=== PATIENT | female | born 1965 | race Caucasian/White ===

== ENCOUNTER → 2018-03-10 07:07 | Outpatient (CLI) | payer OTHER, SELFPAY ==
[2018-03-10 11:05] LABS: Vitamin D 25 Hydroxy (D3) 61.4 ng/mL (30.0-100.0)
[2018-03-10 11:12] LABS: TSH w/ Reflex to FT4 1.75 uIU/mL (0.47-4.68)
== END ==
PROVIDERS: PCP Specialist; Visit Provider Specialist
DX: E55.9 Vitamin D deficiency, unspecified (principal); E03.9 Hypothyroidism, unspecified
CPT/HCPCS: 82306; 84443

== ENCOUNTER 2018-03-21 07:53 | Emergency (ER) | payer OTHER, SELFPAY ==
--- NOTE | 2018-03-21 07:58 | DI.RAD.S_ITS ---
PROCEDURE: XR HAND RT MIN 3V INDICATIONS: hand injury TECHNIQUE: 3 views of the hand(s) acquired. COMPARISON: None. FINDINGS: Bones: No fractures or dislocations. Carpal bones are normally aligned. No suspicious bony lesions. Soft tissues: No suspicious soft tissue calcifications. IMPRESSION: Negative for fracture Dictated by: Abdon Ybarra M.D. on 03/21/2018 at 9:01 Approved by: Abdon Ybarra M.D. on 03/21/2018 at 9:02
[2018-03-21 08:18] VITALS: BP 111/68; PULSE 68; RESP 12; TEMP 36.6; O2SAT 97; BMI 25.3
--- NOTE | 2018-03-21 09:20 | ED_ITS ---
HPI - Extremity Injury (Upper) General Chief Complaint: Extremity Injury, Upper Stated Complaint: SMASHED RT HAND Time Seen by Provider: 03/21/18 07:57 Source: patient Mode of arrival: ambulatory Limitations: no limitations History of Present Illness HPI narrative: 52-year-old otherwise healthy female presents with right hand pain after a work related injury yesterday. 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 She now has pain and bruising on the dorsum of her hand, worse with range of motion and improves with rest. She denies other injury. She denies numbness, tingling or weakness. complaint: injury to: right Onset (ago): day(s) Other Extremity Injury: Right: hand Other injuries: none Handedness: right Place: work Severity: mild Relieving factors: rest Exacerbating factors: movement of extremity Context: direct blow Associated symptoms: denies other symptoms Related Data Allergies Allergy/AdvReac Type Severity Reaction Status Date / Time IBUPROFEN Allergy Mild SUSPECTED Uncoded 11/17/17 11:52 ALLERGY-ANAPHYLAXSIS Fluconazole Allergy Unknown Uncoded 11/17/17 11:52 Miconazole Allergy Unknown Uncoded 11/17/17 11:52 Review of Systems Review of Systems All systems reviewed & are unremarkable except as noted in HPI and below Constitutional Denies chills, Denies fever(s), Denies lethargy and Denies weakness Eyes Denies change in vision, Denies eye discharge, Denies irritation and Denies loss of vision ENT Ears, Nose, Mouth, and Throat: Denies change in voice, Denies neck pain and Denies sore throat Cardiovascular Denies chest pain, Denies irregular heart rhythm, Denies lightheadedness, Denies palpitations, Denies dyspnea, Denies dyspnea on exertion and Denies orthopnea Respiratory Denies cough, Denies dyspnea, Denies dyspnea on exertion and Denies wheezing Gastrointestinal Gastrointestinal: Denies abdominal pain, Denies change in bowel habits, Denies diarrhea, Denies nausea and Denies vomiting Genitourinary Denies hematuria, Denies flank pain, Denies urinary incontinence and Denies urinary urgency Musculoskeletal Reports joint swelling, Reports limited range of motion and Denies neck pain Integumentary/Breasts Denies pruritus, Denies erythema, Denies rash and Denies wounds Neurologic Denies confusion, Denies loss of vision and Denies weakness Psychiatric Denies anxiety, Denies confusion, Denies depression, Denies homicidal ideation and Denies suicidal ideation Endocrine Denies palpitations Hematologic/Lymphatic Denies easy bruising Allergic/Immunologic Denies wheezing [facility] Social History Smoking Status: Former smoker Exam Narrative Exam Narrative: GEN: AOx3 and in mild distress EYES: Pupils are equal, round, and reactive to light and accommodation. Extraoccular muscles are intact bilaterally. There is no subconjunctival hemorrhage or exudate. CHEST: Lungs are clear to auscultation bilaterally and free of wheezes, rales, or rhonchi. Heart rate is regular rhythm, there are no murmurs, clicks, rubs, or gallops. There is no chest wall tenderness. ABD: Abdomen is soft and nontender. There is no guarding or rebound. Bowel sounds are normal in all 4 quadrants. There is no mass or organomegaly. EXT: Full but painful range of motion of right hand. Patient able to make a fist. No obvious deformity. Minimal swelling. Cap refill and sensation intact. SKIN: Warm, pink, and dry. No erythema or rash Initial Vital Signs Initial Vital Signs: Vital Signs Temperature 97.9 F 03/21/18 08:18 Pulse Rate 68 03/21/18 08:18 Respiratory Rate 12 03/21/18 08:18 Blood Pressure 111/68 03/21/18 08:18 Pulse Oximetry 97 03/21/18 08:18 Course Orders Ordered: ED Orders 03/21/18 07:58 XR hand RT min 3V Stat Vital Signs - 8 hr 03/21/18 08:18 Temperature 97.9 F Pulse Rate 68 Respiratory Rate 12 Blood Pressure 111/68 Pulse Oximetry 97 MDM - Extremity Injury (Upper) Imaging Data Hand Xray: Attestation: I personally reviewed and interpreted this imaging study as follows: My impression: NAP Radiologist's impression: PROCEDURE: XR HAND RT MIN 3V INDICATIONS: hand injury TECHNIQUE: 3 views of the hand(s) acquired. COMPARISON: None. FINDINGS: Bones: No fractures or dislocations. Carpal bones are normally aligned. No suspicious bony lesions. Soft tissues: No suspicious soft tissue calcifications. IMPRESSION: Negative for fracture Dictated by: Abdon Ybarra M.D. on 03/21/2018 at 9:01 Approved by: Abdon Ybarra M.D. on 03/21/2018 at 9:02 Discharge Plan Departure Patient Disposition: Home, Self-Care Clinical Impression: Contusion of hand, right Discharge Date/Time: 03/21/18 09:51 Interventions: ED Discharge Assessment Last Done: 03/21/18 09:50 Instructions: DI for Contusion Activity Restrictions/Additional Instructions: *You have been diagnosed with [ work related right hand contusion ] *What to do: *Take medications as directed: [id number] Motrin or Tylenol for pain *Follow up with your primary care provider in 2-3 days, call for an appointment. Let them know you were seen in the Emergency Department and that we ask that you be seen in follow up *Return to ER if you should have any new, worsening or concerning symptoms Referrals: Linnette Dewitt MD [Primary Care Provider] -
== END 2018-03-21 09:51 | disposition home or self-care (01) ==
PROVIDERS: Emergency Provider Emergency Medicine; PCP Specialist
DX: S60.221A Contusion of right hand, initial encounter (principal); W23.0XXA Caught, crushed, jammed, or pinched between moving objects, initial encounter; Y99.0 Civilian activity done for income or pay
CPT/HCPCS: 73130; 99282; 99283

== ENCOUNTER → 2018-10-20 09:48 | Outpatient (CLI) | payer OTHER, SELFPAY ==
--- NOTE | 2018-10-20 | DI.MG.S_ITS ---
BILATERAL DIGITAL SCREENING MAMMOGRAM 3D/2D WITH CAD: 10/20/2018 CLINICAL: Routine screening. Comparison is made to exams dated: 11/19/2016 mammogram, 12/06/2014 mammogram, and 09/14/2013 mammogram - [facility]. There are scattered fibroglandular elements in both breasts. Current study was also evaluated with a Computer Aided Detection (CAD) system. No significant masses, calcifications, or other findings are seen in either breast. There has been no significant interval change. IMPRESSION: NEGATIVE There is no mammographic evidence of malignancy. A 1 year screening mammogram is recommended. This exam was interpreted at Station ID: [id number]. NOTE: For mammograms, a report in lay terms will be sent to the patient. Approximately 15% of breast malignancies will not be visualized mammographically. In the management of a palpable breast mass, a negative mammogram must not discourage biopsy of a clinically suspicious lesion. Electronically Signed By: Tiago farias/jose:10/20/2018 10:50:06 letter sent: Normal Exam ACR BI-RADS Category 1: Negative 3341F
== END ==
PROVIDERS: PCP Specialist; Visit Provider Specialist
DX: Z12.31 Encounter for screening mammogram for malignant neoplasm of breast (principal)
CPT/HCPCS: 77063; 77067

== ENCOUNTER → 2020-04-25 15:51 | Outpatient (CLI) | payer OTHER, SELFPAY ==
--- NOTE | 2020-04-25 | DI.MG.S_ITS ---
BILATERAL DIGITAL SCREENING MAMMOGRAM 3D/2D WITH CAD: 04/25/2020 Comparison is made to exams dated: 10/20/2018 mammogram, 11/19/2016 mammogram, and 12/06/2014 mammogram - [facility]. There are scattered fibroglandular elements in both breasts. Current study was also evaluated with a Computer Aided Detection (CAD) system. No significant masses, calcifications, or other findings are seen in either breast. There has been no significant interval change. IMPRESSION: NEGATIVE There is no mammographic evidence of malignancy. A 1 year screening mammogram is recommended. This exam was interpreted at Station ID: [id number]. NOTE: For mammograms, a report in lay terms will be sent to the patient. Approximately 15% of breast malignancies will not be visualized mammographically. In the management of a palpable breast mass, a negative mammogram must not discourage biopsy of a clinically suspicious lesion. Electronically Signed By: Ashkan Alvarado M.D., jr/jose:04/25/2020 17:17:50 letter sent: Normal Exam ACR BI-RADS Category 1: Negative 3341F
== END ==
PROVIDERS: PCP Specialist; Referring Provider Specialist; Visit Provider Specialist
DX: Z12.31 Encounter for screening mammogram for malignant neoplasm of breast (principal)
CPT/HCPCS: 77063; 77067

== ENCOUNTER → 2021-05-22 07:22 | Outpatient (CLI) | payer OTHER, SELFPAY ==
[2021-05-22 07:52] LABS: COVID19 -Nasal RAPID Negative (Negative)
== END ==
PROVIDERS: PCP Specialist; Referring Provider Nurse Practitioner; Visit Provider Nurse Practitioner
DX: Z20.822 Contact with and (suspected) exposure to COVID-19 (principal)
CPT/HCPCS: 87635

== ENCOUNTER → 2021-06-20 07:42 | Outpatient (CLI) | payer OTHER, SELFPAY ==
[2021-06-20] MEDS: COVID-19 VACC #3, MRNA(MOD) 50 MCG/0.25 ML VIAL IM (11:52)
== END ==
PROVIDERS: PCP Specialist; Visit Provider Internal Medicine
DX: Z23 Encounter for immunization (principal)
CPT/HCPCS: 0013A; 91301

== ENCOUNTER → 2021-06-26 12:50 | Outpatient (CLI) | payer OTHER, SELFPAY | PROVIDERS: PCP Specialist; Referring Provider Internal Medicine; Visit Provider Internal Medicine | DX: Z23 Encounter for immunization (principal) | CPT/HCPCS: 90471; 90686 ==

== ENCOUNTER → 2022-04-21 09:59 | Outpatient (CLI) | payer OTHER, SELFPAY ==
--- NOTE | 2022-04-21 10:13 | DI.MG.S_ITS ---
BILATERAL DIGITAL SCREENING MAMMOGRAM 3D/2D WITH CAD: 04/21/2022 CLINICAL: Routine screening. Comparison is made to exams dated: 04/25/2020 mammogram, 10/20/2018 mammogram, and 11/19/2016 mammogram - [facility]. There are scattered areas of fibroglandular density in both breasts (category b / 25%-50% glandular tissue). Current study was also evaluated with a Computer Aided Detection (CAD) system. No significant masses, calcifications, or other findings are seen in either breast. There has been no significant interval change. IMPRESSION: NEGATIVE There is no mammographic evidence of malignancy. A 1 year screening mammogram is recommended. Based on the Tyrer Cuzick model (a risk assessment model) the patient's lifetime risk is 8.0% and her 10 year risk is 2.6%. According to the ACR, ACS, and NCCN guidelines, an annual breast MRI exam along with mammogram is recommended if the patient's lifetime risk is 20% or greater. This exam was interpreted at Station ID: [id number]. NOTE: For mammograms, a report in lay terms will be sent to the patient. Approximately 15% of breast malignancies will not be visualized mammographically. In the management of a palpable breast mass, a negative mammogram must not discourage biopsy of a clinically suspicious lesion. Electronically Signed By: Wilmer posadas/jose:04/21/2022 12:37:23 letter sent: Normal Exam ACR BI-RADS Category 1: Negative 3341F
== END ==
PROVIDERS: PCP Specialist; Referring Provider Specialist; Visit Provider Specialist
DX: Z12.31 Encounter for screening mammogram for malignant neoplasm of breast (principal)
CPT/HCPCS: 77063; 77067